=== PATIENT | female | born 1985 | race African-American/Black ===

== ENCOUNTER 2017-02-15 14:10 | Emergency (ER) | payer OTHER ==
[~2017-02-15] VITALS: Ht 162.6 cm; Wt 98.0 kg
[~2017-02-15 14:10] MED LIST: ASPI81TA3 PO; METH250T PO; PREN-19 PO
[2017-02-15 14:17] VITALS: Ht 162.6 cm; Wt 98.0 kg
[2017-02-15] MEDS ORDERED: IBUPROFEN 800 MG TAB PO ONE (15:30)
[2017-02-15 15:42] LABS: URINE BLOOD (Dip) POC Trace-lysed (NEGATIVE)
--- NOTE | 2017-02-15 16:02 | ERD ---
ER Documentation Chief Complaint Date/Time DATE: 02/15/17 TIME: 15:59 Chief Complaint HIGH BLOOD PRESSURE; HEADACHE; HANDS TINGLING HPI Patient is a 31-year-old female with hypertension who presents with hypertension. [facility], [facility], and tachycardia. The patient felt dizzy. She has a mild headache at this time. She had right-sided hand tingling which started yesterday but was worse today. She denies being . She has had no treatment as of yet. Upon review of old medical records this the patient's fifth visit to the ER since 2013. She said that she was on methyldopa during for her blood pressure and that the plan was to increase her blood pressure medicine although she has not done that as of yet. ROS All systems reviewed and are negative except as per history of present illness. Medications Home Meds Reported Medications Aspirin (Aspirin) 81 Mg Chew, 81 MG PO DAILY, TAB.CHEW 05/29/16 Methyldopa* (Methyldopa*) 250 Mg Tablet, 250 MG PO BID, TAB 05/29/16 Vit-Iron,Carbonyl-FA (Prenatabs Rx) 1 Tab Tablet, 1 TAB PO DAILY, TAB 09/25/14 Allergies Allergies: Coded Allergies: No Known Allergy (Unverified , 11/08/14) PMhx/Soc History of Surgery: No Anesthesia Reaction: No Hx Neurological Disorder: No Hx Respiratory Disorders: No Hx Cardiac Disorders: Yes (htn) Hx Psychiatric Problems: No Hx Miscellaneous Medical Probl: No Hx Alcohol Use: No Hx Substance Use: No Hx Tobacco Use: No FmHx Family History: No diabetes Physical Exam Vitals Vital Signs Date Time Temp Pulse Resp B/P Pulse Ox O2 Delivery O2 Flow Rate FiO2 02/15/17 14:17 99.9 103 18 142/90 99 Physical Exam Const: No acute distress Head: Atraumatic Eyes: Normal Conjunctiva ENT: Normal External Ears, Nose and Mouth. Neck: Full range of motion..~ No meningismus. Resp: Clear to auscultation bilaterally Cardio: Regular rate and rhythm, no murmurs Abd: Soft, non tender, non distended. Normal bowel sounds Skin: No petechiae or rashes Back: No midline or flank tenderness Ext: No cyanosis, or edema Neur: Awake and alert, no slurred speech, no weakness of the upper or lower extremities, cranial nerves II through XII are intact Psych: Normal Mood and Affect Results 24 hrs Laboratory Tests Test 02/15/17 15:43 02/15/17 15:45 Bedside Urine pH (LAB) 6.0 Bedside Urine Protein (LAB) Negative Bedside Urine Glucose (UA) Negative Bedside Urine Ketones (LAB) Negative Bedside Urine Blood Trace-lysed Bedside Urine Nitrite (LAB) Negative Bedside Urine Leukocyte Esterase (L Negative Bedside Glucose 98mg/dL Current Medications Medications (Trade) Dose Ordered Sig/Kirstin Route PRN Reason Start Time Stop Time Status Last Admin Dose Admin Ibuprofen (Motrin) 800 mg ONCE ONCE PO 02/15/17 15:30 02/15/17 15:31 DC 02/15/17 15:48 Procedures/MDM EKG read by me: Rate/Rhythm: Regular rate and rhythm at a rate of 90 Intervals: Normal Impression: No evidence of ischemia or arrhythmia test is negative, urine dip is negative, Accu-Chek is normal. Patient is a 31-year-old female presents with paresthesias, headache, and high blood pressure. Her physical exam is normal and she appears to be in no distress. I doubt intracranial mass, intrarenal hemorrhage, meningitis. I doubt acute coronary syndrome. I doubt or ectopic . I doubt hypo-or hyperglycemia. I believe outpatient management is appropriate. I believe the patient has acute on chronic hypertension as well as paresthesias. The patient can return for any worsening symptoms. She should follow-up with her primary doctor to discuss further blood pressure management. Departure Diagnosis: Primary Impression: Arm paresthesia, right Additional Impression: Hypertension Hypertension type: essential hypertension Qualified Code: I10 - Essential hypertension Condition: Fair Patient Instructions: High Blood Pressure (Hypertension), Paraesthesias Additional Instructions: Call your primary care doctor TOMORROW for an appointment during the next 1-2 days.See the doctor sooner or return here if your condition worsens before your appointment time. DULCE LIPSCOMB MD Feb 15, 2017 16:02
[2017-02-15 16:06] VITALS: BP 132/76; PULSE 88; RESP 18; TEMP 98.1
== END 2017-02-15 16:07 | disposition home or self-care (01) ==
LOC: FTE 14:10
DX: R20.2 Paresthesia of skin (principal); Z79.82 Long term (current) use of aspirin
CPT/HCPCS: 81003; 82962; 93005; Z7610

== ENCOUNTER 2017-08-05 02:33 | Emergency (ER) | payer OTHER ==
[~2017-08-05] VITALS: Ht 162.6 cm; Wt 97.5 kg
[2017-08-05 02:43] VITALS: Ht 162.6 cm; Wt 97.5 kg
[2017-08-05] MEDS ORDERED: TRAM50TA2 PO (04:35)
[2017-08-05] MEDS ORDERED: IBUP-1542 PO (04:35)
--- NOTE | 2017-08-05 04:55 | ERD ---
ER Documentation Chief Complaint Date/Time DATE: 08/05/17 TIME: 04:51 Chief Complaint R index finger pain HPI 31-year-old female presents here to emergency department for complaints of right index finger that started 2 weeks ago, after pushing it into a shoe 2 weeks ago. Patient does complain of pain sharp pain, 4/10 scale, as was upon movement. Is complaining of some swelling. Denies any numbness or tingling. Patient denies any fever or chills. ROS All systems reviewed and are negative except as per history of present illness. Medications Home Meds Active Scripts Tramadol HCl (Tramadol HCl) 50 Mg Tablet, 50 MG PO Q6 Y for SEVERE PAIN LEVEL 7- 10, #20 TAB Prov:ABDIRIZAK DAVILA [employer]IA RELATIONS MANAGER 08/05/17 Ibuprofen* (Motrin*) 600 Mg Tab, 600 MG PO Q6H Y for PAIN AND OR ELEVATED TEMP, #30 TAB Prov:ABDIRIZAK DAVILA [employer] RELATIONS MANAGER 08/05/17 Reported Medications Aspirin (Aspirin) 81 Mg Chew, 81 MG PO DAILY, TAB.CHEW 05/29/16 Methyldopa* (Methyldopa*) 250 Mg Tablet, 250 MG PO BID, TAB 05/29/16 Vit-Iron,Carbonyl-FA (Prenatabs Rx) 1 Tab Tablet, 1 TAB PO DAILY, TAB 09/25/14 Allergies Allergies: Coded Allergies: No Known Allergy (Unverified , 11/08/14) PMhx/Soc Medical and Surgical Hx: pt denies Medical Hx, pt denies Surgical Hx History of Surgery: No Anesthesia Reaction: No Hx Neurological Disorder: No Hx Respiratory Disorders: No Hx Cardiac Disorders: Yes (htn) Hx Psychiatric Problems: No Hx Miscellaneous Medical Probl: No Hx Alcohol Use: No Hx Substance Use: No Hx Tobacco Use: No Smoking Status: Never smoker FmHx Family History: No coronary disease, No diabetes, No other Physical Exam Vitals Vital Signs Date Time Temp Pulse Resp B/P Pulse Ox O2 Delivery O2 Flow Rate FiO2 08/05/17 02:43 98.7 89 18 135/81 100 Physical Exam GENERAL: The patient is well developed and appropriate for usual state of health, in no apparent distress. CHEST: Clear to auscultation bilaterally. There are no rales, wheezes or rhonchi. HEART: Regular rate and rhythm. No murmurs, clicks, rubs or gallops. No S3 or S4. ABDOMEN: Soft, nontender and nondistended. Good bowel sounds. No rebound or guarding. No gross peritonitis. No gross organomegaly or masses. No Alberts sign or McBurney point tenderness. BACK: No midline or flank tenderness. EXTREMITIES: able to do full range of motion of the right index finger without any restriction, no erythema noted, no swelling noted. Equal pulses bilaterally. There is no peripheral clubbing, cyanosis or edema. No focal swelling or erythema. Full range of motion. Grossly neurovascularly intact. NEURO: Alert and oriented. Cranial nerves 2-12 intact. Motor strength in all 4 extremities with 5/5 strength. Sensation grossly intact. Normal speech and gait. SKIN: There is no apparent rash or petechia. The skin is warm and dry. HEMATOLOGIC AND LYMPHATIC: There is no evidence of excessive bruising or lymphedema. No gross cervical, axillary, or inguinal lymphadenopathy. Procedures/MDM After receiving patients xray report, a metal splint was applied on the patient s right index finger . After application of the splint, patient has intact sensation and circulation on distal area of the affected joint. Patient does not complain of numbness or tingling after application of the splint. Patient tolerated procedure well. Medical decision making: Patient's right index finger pain nonspecific at this time, most likely from finger sprain. No symptoms of any fractures, low suspicion, able to do full range of motion without any restriction. X-rays of affected area not indicated at this time. No symptoms of any neurovascular compromise. No symptoms of any septic arthritis. Prescription was given for ibuprofen for [id number] pain, [place] for severe pain. Patient's right next finger was splinted. Patient was advised to return to emergency department for any worsening symptoms. Disposition: Home. Stable. Departure Diagnosis: Primary Impression: Finger sprain Encounter type: initial encounter Finger: index finger Sprain of finger site: interphalangeal joint Laterality: right Qualified Code: S63.630A - Sprain of interphalangeal joint of right index finger, initial encounter Condition: Stable Patient Instructions: Sprain Finger ABDIRIZAK DAVILA NP Aug 05, 2017 04:55
== END 2017-08-05 04:47 | disposition home or self-care (01) ==
LOC: FTE 02:33
DX: S63.630A Sprain of interphalangeal joint of right index finger, initial encounter (principal); I10 Essential (primary) hypertension; W22.8XXA Striking against or struck by other objects, initial encounter; Y92.9 Unspecified place or not applicable; Z79.82 Long term (current) use of aspirin
CPT/HCPCS: 29130; Z7502

== ENCOUNTER 2018-02-08 09:14 | Emergency (ER) | END 2018-02-08 10:31 | disposition home or self-care (01) ==